=== PATIENT | female | born 1965 | race Caucasian/White ===

== ENCOUNTER 2022-01-11 05:40 | Day surgery (SDC) | payer OTHER ==
[2022-01-04 12:08] LABS: BASOPHILS % (AUTO) 0.3 % (0-1); EOSINOPHILS % (AUTO) 1.3 % (0-6); LYMPHOCYTES # (AUTO) 0.7 X10'3 (1.1-4.8); LYMPHOCYTES % (AUTO) 20.2 % (21-51); MEAN CORPUSCULAR HEMOGLOBIN 30.8 PG (27.0-31.0); MEAN CORPUSCULAR HGB CONC 33.6 g/dL (33.0-36.5); MEAN CORPUSCULAR VOLUME 91.7 FL (78-98); MEAN PLATELET VOLUME 8.4 FL (7.4-10.4); MONOCYTES # (AUTO) 0.3 X10'3 (0-0.9); MONOCYTES % (AUTO) 7.2 % (2-12); NEUTROPHILS # (AUTO) 2.6 X10'3 (1.8-7.7); PRE OP HEMATOCRIT 40.1 % (35.0-45.0); PRE OP HEMOGLOBIN 13.5 g/dL (12.0-16.0); PRE OP PLATELET COUNT 242 X10'3 (140-440); RED BLOOD COUNT 4.37 X10'6 (4.20-5.60); RED CELL DISTRIBUTION WIDTH 13.2 % (11.5-14.5)
[2022-01-04 12:22] LABS: APTT 26 SECONDS (22-32)
[2022-01-04 12:37] LABS: ALBUMIN 3.9 G/DL (3.4-5.0); ALBUMIN/GLOBULIN RATIO 1.5 (1.1-1.5); ALKALINE PHOSPHATASE 66 IU/L (46-116); BLOOD UREA NITROGEN 16 MG/DL (7-18); BUN/CREATININE RATIO 17.4 (6.6-38.0); CALCIUM 8.9 MG/DL (8.5-10.1); CHLORIDE 103 MMOL/L (99-107); CREATININE 0.92 MG/DL (0.40-0.90); PRE OP ALT 57 U/L (30-65); PRE OP ANION GAP 9 (8-16); PRE OP AST 31 U/L (10-37); PRE OP BILIRUB, TOTAL 0.4 MG/DL (0.0-1.0); PRE OP GLUCOSE 117 MG/DL (70-104); PRE OP SODIUM 140 MMOL/L (135-145); TOTAL CARBON DIOXIDE 28.4 MMOL/L (24-32); TOTAL PROTEIN 6.5 G/DL (6.4-8.2); eGFR 63 ML/MIN
[~2022-01-11] VITALS: Ht 170.2 cm; Wt 74.8 kg
[2022-01-11] VITALS (10 sets, daily range): BP systolic 114–154; BP diastolic 71–99
[~2022-01-11 05:40] MED LIST: CALC-627 PO; DICL75TA28 PO; ESTR1PAT95 TD; GABA600T13 PO; GARL100T PO; KRIL1CAP21 PO; TOFA11TA PO; TRAM300T23 PO; diazepam 5mg tablet PO ONE; famotidine 20mg tablet PO ONE; ringers solution, lacted 1,000 ML IV SCH
[2022-01-11] MEDS ORDERED: lidocaine 1%/epinephrine 1:100,000 inj. 50ml multi-dose vial ONE (06:58)
[2022-01-11] MEDS: oxymetazoline 15 ML nasal spray NS SCH ×2 (06:58→10:50)
[2022-01-11] MEDS ORDERED: cocaine 4% topical solution 4ml bottle ONE (06:58)
[2022-01-11] MEDS ORDERED: mupirocin 2% ointment 22GM ONE (06:58)
[2022-01-11] MEDS ORDERED: oxymetazoline 15 ML nasal spray NS ONE (06:59)
[2022-01-11] MEDS ORDERED: midazolam 1 mg/ML 2ml injection ONE (08:08)
[2022-01-11] MEDS ORDERED: FENTANYL CITRATE/PF 50 MCG/1 ML VIAL ONE (08:08)
[2022-01-11] MEDS ORDERED: propofol inj 20 ML IV ONE (08:12)
[2022-01-11] MEDS ORDERED: CEFTAZIDIME 2 GM IV ONE (08:35)
[2022-01-11] MEDS ORDERED: meperidine/PF 25mg/ml syringe IV PRN ×3 (08:55)
[2022-01-11] MEDS ORDERED: morphine 4 MG/ML inj SYRINge IV PRN (08:55)
[2022-01-11] MEDS ORDERED: morphine 2 MG/ML inj. syringe IV PRN (08:55)
[2022-01-11] MEDS ORDERED: ondansetron/PF 4mg/2ml inj IV PRN (08:55)
[2022-01-11] MEDS ORDERED: proCHLORperazine 10 MG/2 ml inj IV PRN (08:55)
[2022-01-11] MEDS ORDERED: ringers solution, lacted 1,000 ML IV SCH (08:55)
[2022-01-11] MEDS ORDERED: ePHEDrine 50MG/ML INJ. ONE (09:21)
[2022-01-11] MEDS ORDERED: dexamethasone sod phosphate 4mg/ml inj. ONE (09:21)
[2022-01-11] MEDS ORDERED: ondansetron/PF 4mg/2ml inj ONE (09:22)
--- NOTE | 2022-01-11 09:37 | NUR ---
Received from OR via [facility] , accompanied by Anesthesiologist DR MURO and report given by Anesthesiolgist. PT PRESENT WITH 18G RIGHT HAND, NASAL DRESSING DRY AND INTACT, VSS. Addendum: 01/11/22 at 0947 by Aviva Jacobo RN, RN Amended: Links added.
[2022-01-11] MEDS ORDERED: salt irrigation nasal spray 45 ML SPRAY NS PRN (10:00)
[2022-01-11] MEDS ORDERED: HYDROcodone/acetaminophen 5mg/325mg tablet PO ONE (10:30)
--- NOTE | 2022-01-11 10:47 | NUR ---
AL DC CRITERIA MET, DC'D IV CATHETER WITH CANULA INTACT. DC INSTRUCTIONS REVIEWED WITH PT, PT VERBALIZED UNDERSTANDING WITH NO FURTHER QUESTIONS AT THIS TIME. PT GIVEN OCEAN SPRAY NASAL, AFRIN AND MUPIROCIN, PT GIVEN EXTRA 4X4 WITH NASAL SALINE 60CC FLUSH. FLUSH DEMONSTRATED TO PT. PT TAKEN OUT IN A WHEELCHAIR TO PITA WHO DROVE PT HOME. Addendum: 01/11/22 at 1114 by Aviva Jacobo RN, RN Amended: Links added.
== END 2022-01-11 10:47 | disposition home or self-care (01) ==
LOC: PAS 05:40
PROVIDERS: ATTEND Otolaryngology
DX: J32.8 Other chronic sinusitis (principal); J34.89 Other specified disorders of nose and nasal sinuses; Z20.822 Contact with and (suspected) exposure to COVID-19; Z98.890 Other specified postprocedural states; Z79.899 Other long term (current) drug therapy; Z88.2 Allergy status to sulfonamides; Z91.018 Allergy to other foods; Z79.01 Long term (current) use of anticoagulants
CPT/HCPCS: 31254; 31267; 36415; 61782; 80053; 82948; 85025; 85576; 85610; 85730; 87070; 87075; 87102; 87635; 93005; A6402; C9250; C9803; J1100; J2250; J2405; J2704; J3010; J3490; J7030; J7040; J7120; U0003; Z7506; Z7508; Z7512; A4618; A7000